=== PATIENT | female | born 1970 | race Hispanic/Latino ===

== ENCOUNTER 2017-11-01 23:24 | Emergency (ER) | payer BC ==
[~2017-11-01] VITALS: Ht 152.4 cm; Wt 63.5 kg
[2017-11-02 00:37] LABS: BASOPHILS # (AUTO) 0.1 (0.0-0.1); BASOPHILS % 0.7 % (0.0-1.0); EOSINOPHILS # (AUTO) 0.3 (0.0-0.4); EOSINOPHILS % 3.5 % (0.0-6.0); HEMATOCRIT 39.4 % (34.2-44.1); HEMOGLOBIN 13.2 g/dL (12.0-16.0); LYMPHOCYTES # (AUTO) 2.3 (1.0-3.2); LYMPHOCYTES % 30.9 % (18.0-39.1); MEAN CORPUSCULAR HEMOGLOBIN 29.7 pg (28-32); MEAN CORPUSCULAR HGB CONC 33.5 g/dL (31-35); MEAN CORPUSCULAR VOLUME 88.7 fL (81-99); MONOCYTES # (AUTO) 0.4 (0.2-0.8); MONOCYTES % 5.5 % (4.4-11.3); NEUTROPHILS # (AUTO) 4.4 (2.1-6.9); NEUTROPHILS % 59.1 % (38.7-80.0); PLATELET COUNT 248 x10e3/uL (140-360); RED BLOOD COUNT 4.44 x10e6/uL (3.6-5.1); RED CELL DISTRIBUTION WIDTH 12.3 % (11.7-14.4)
[2017-11-02 00:50] LABS: INR 1.04; PROTHROMBIN TIME 12.8 seconds (11.9-14.5)
[2017-11-02 00:51] LABS: PARTIAL THROMBOPLASTIN TIME 25.9 seconds (23.8-35.5)
[2017-11-02 00:58] LABS: ALANINE AMINOTRANSFERASE 12 IU/L (0-55); ALBUMIN 3.7 g/dL (3.5-5.0); ALKALINE PHOSPHATASE 76 IU/L (40-150); ANION GAP 11.9 mmol/L (8-16); BLOOD UREA NITROGEN 13 mg/dL (7-26); BUN/CREATININE RATIO 19 (6-25); CALCIUM 8.7 mg/dL (8.4-10.2); CARBON DIOXIDE 25 mmol/L (22-29); CHLORIDE 105 mmol/L (98-107); CREATININE, SERUM 0.68 mg/dL (0.57-1.11); EST GLOMERULAR FILTRATION RATE > 60 ML/MIN (60-); GLUCOSE 100 mg/dL (74-118); POTASSIUM 3.9 mmol/L (3.5-5.1); SODIUM 138 mmol/L (136-145)
[2017-11-02 03:26] VITALS: BP 123/77
== END 2017-11-02 03:39 | disposition home or self-care (01) ==
LOC: ER 23:24
DX: K62.5 Hemorrhage of anus and rectum (principal)
CPT/HCPCS: 36415; 80053; 83735; 85025; 85610; 85730; 86850; 86900; 99283

== ENCOUNTER → 2017-11-09 | Day surgery (SDC) | payer BC ==
[~2017-11-09] MED LIST: FENTANYL CITRATE/PF 100MCG/2 ML INJ ONE; LIDOCAINE HCL 2% LOCAL INJ 5 ML SDV VIAL INJ ONE; MIDAZOLAM HCL 2 MG/2 ML VIAL ONE; PROPOFOL IV EMULSION 10 MG/ML 50 ML VIAL ONE; SLEEP AID25 M1 PO
--- OUTSIDE RECORDS SUMMARY | 2017-11-09 12:26 | XMS REPORT | Continuity of Care Document ---
Author Author [facility] Organization [facility] Address [address] [place] [address] Phone Unavailable Care Team Providers Care Ship Unloader Name Role Phone JUSTIN OLIVEIRA MD PCP Advance Directives No advance directive information available. Problems No problem information available. Medications No medication information available. Social History Smoking Status Start Date Stop Date Never Smoker Hospital Discharge Instructions No hospital discharge instruction information available. Plan of Care Discharge Date 11/02/17 3:39am Disposition HOME, SELF-CARE Condition at Discharge Stable Instructions/Education Provided GI Bleeding Forms Provided Work/School Excuse Prescriptions See Medication Section Referrals JUSTIN OLIVEIRA MD Order Date: In AM [facility]: [address] [facility] [address] [place], [place] [id number] Additional Instructions/Education FOLLOW-UP WITH YOUR [employer] MAINTENANCE TECHNICIAN IN THE MORNING FOR COLONOSCOPY Functional Status No functional status information available. Allergies, Adverse Reactions, Alerts No known allergies. Immunizations No immunization information available. Vital Signs Acute Vital Signs Vital Response Date/Time Blood Pressure 123/77 mm Hg 11/02/2017 3:26am Height 5 ft 0 in 11/02/2017 12:09am Weight 140 lb 11/02/2017 12:09am Body Mass Index 27.3 kg/m^2 11/02/2017 12:09am Results Laboratory Results Test Name Result Units Flags Reference Collection Date/Time Result Date/ Time Comments White Blood Count 7.50 x10e3/uL 4.8-10.8 11/02/2017 12:11/02/2017 12:41am Red Blood Count 4.44 x10e6/uL 3.6-5.1 11/02/2017 12:11/02/2017 12: 41am Hemoglobin 13.2 g/dL 12.0-16.0 11/02/2017 12:11/02/2017 12:41am Hematocrit 39.4 % 34.2-44.1 11/02/2017 12:11/02/2017 12:41am Mean Corpuscular Volume 88.7 fL 81-99 11/02/2017 12:11/02/2017 12: 41am Mean Corpuscular Hemoglobin 29.7 pg 28-32 11/02/2017 12:2017 12:41am Mean Corpuscular Hemoglobin Concent 33.5 g/dL 31-35 11/02/2017 12:11/02/2017 12:41am Red Cell Distribution Width 12.3 % 11.7-14.4 11/02/2017 12:2017 12:41am Platelet Count 248 x10e3/uL 140-360 11/02/2017 12:11/02/2017 12: 41am Neutrophils (%) (Auto) 59.1 % 38.7-80.0 11/02/2017 12:11/02/2017 12:41am Lymphocytes (%) (Auto) 30.9 % 18.0-39.1 11/02/2017 12:11/02/2017 12:41am Monocytes (%) (Auto) 5.5 % 4.4-11.3 11/02/2017 12:11/02/2017 12: 41am Eosinophils (%) (Auto) 3.5 % 0.0-6.0 11/02/2017 12:11/02/2017 12: 41am Basophils (%) (Auto) 0.7 % 0.0-1.0 11/02/2017 12:11/02/2017 12: 41am IM GRANULOCYTES % 0.3 % 0.0-1.0 11/02/2017 12:11/02/2017 12:41am Neutrophils # (Auto) 4.4 2.1-6.9 11/02/2017 12:11/02/2017 12: 41am Lymphocytes # (Auto) 2.3 1.0-3.2 11/02/2017 12:11/02/2017 12: 41am Monocytes # (Auto) 0.4 0.2-0.8 11/02/2017 12:11/02/2017 12:41am Eosinophils # (Auto) 0.3 0.0-0.4 11/02/2017 12:11/02/2017 12: 41am Basophils # (Auto) 0.1 0.0-0.1 11/02/2017 12:11/02/2017 12:41am Absolute Immature Granulocyte (auto 0.02 x10e3/uL 0-0.1 11/02/2017 12: 11/02/2017 12:41am Prothrombin Time 12.8 seconds 11.9-14.5 11/02/2017 12:11/02/2017 12:52am Prothromb Time International Ratio 1.04 11/02/2017 12:2017 12:52am Oral Anticoagulant Therapy INR Values: 1. Low Intensity Therapy 1.5 - 2.0 2. Moderate Intensity Therapy 2.0 - 3.0 3. High Intensity Therapy(1) 2.5 - 3.5 4. High Intensity Therapy(2) 3.0 - 4.0 5. Panic Value INR > 5.0 Activated Partial Thromboplast Time 25.9 seconds 23.8-35.5 11/02/2017 12 :11/02/2017 12:52am Sodium Level 138 mmol/L 136-145 11/02/2017 12:11/02/2017 12:59am Potassium Level 3.9 mmol/L 3.5-5.1 11/02/2017 12:11/02/2017 12: 59am Chloride Level 105 mmol/L 98-107 11/02/2017 12:11/02/2017 12:59am Carbon Dioxide Level 25 mmol/L 11/02/2017 12:11/02/2017 12: 59am Anion Gap 11.9 mmol/L 8-11/02/2017 12:11/02/2017 12:59am Blood Urea Nitrogen 13 mg/dL 01-0411/02/2017 12:11/02/2017 12: 59am Creatinine 0.68 mg/dL 0.57-1.11 11/02/2017 12:11/02/2017 12:59am BUN/Creatinine Ratio 19 6-25 11/02/2017 12:11/02/2017 12:59am Estimat Glomerular Filtration Rate > 60 ML/MIN 60- 11/02/2017 12:11/02/2017 12:59am Ranges were taken from the National Kidney Disease Education Program and the National Kid[employer] literature. Reference ranges: 60 or greater: Normal 16-59 (for 3 consecutive months): Chronic kidney disease 15 or less: Kidney failure Glucose Level 100 mg/dL 74-118 11/02/2017 12:11/02/2017 12:59am Calcium Level 8.7 mg/dL 8.4-10.2 11/02/2017 12:11/02/2017 12:59am Magnesium Level 2.0 MG/DL 1.3-2.1 11/02/2017 12:11/02/2017 12: 59am Total Bilirubin 0.2 mg/dL 0.2-1.2 11/02/2017 12:11/02/2017 12: 59am Aspartate Amino Transf (AST/SGOT) 15 IU/L 5-34 11/02/2017 12:11/02 12:59am Alanine Aminotransferase (ALT/SGPT) 12 IU/L 0-55 11/02/2017 12: 12:59am Total Protein 7.3 g/dL 6.5-8.1 11/02/2017 12:11/02/2017 12:59am Albumin 3.7 g/dL 3.5-5.0 11/02/2017 12:11/02/2017 12:59am Globulin 3.6 g/dL H 2.3-3.5 11/02/2017 12:11/02/2017 12:59am Albumin/Globulin Ratio 1.0 0.8-2.0 11/02/2017 12:11/02/2017 12: 59am Alkaline Phosphatase 76 IU/L 40-150 11/02/2017 12:11/02/2017 12: 59am Procedures No procedure information available. Encounters Encounter Location Arrival/Admit Date Discharge/Depart Date Attending Provider Departed Emergency Room [facility] 11/01/17 11:24pm 11/02 3:39am NICK MEDELLIN MD
--- NOTE | 2017-11-09 16:04 | Operative Report ---
DATE OF PROCEDURE: November 09, 2017 PROCEDURES PERFORMED 1. Esophagogastroduodenoscopy with biopsies. 2. Colonoscopy with polypectomy. INDICATIONS FOR EGD: Upper abdominal pain. INDICATIONS FOR COLONOSCOPY: Chronic diarrhea. MEDICATION: Patient was done under MAC. Please see anesthesiologist's note. PROCEDURE: With the patient in the left lateral decubitus position, the flexible fiberoptic Olympus gastroscope was introduced into the esophagus under direct visualization without any difficulty. There was some patchy erythema noted in the distal esophagus. The scope was then advanced with ease into the stomach. Mucosa overlying the antrum and the body revealed some patchy erythema and mild to moderate edema, and biopsies were obtained and sent to stain for H. pylori. Pylorus appeared to be of normal contour and shape. It was intubated with ease. The scope was advanced all the way to the 2nd portion of the duodenum. The scope was then withdrawn slowly. Mucosa overlying the proximal 2nd portion appeared to be within normal limits. A large friable fold was noted in the duodenal bulb, which was somewhat nodular and biopsies were obtained. The scope was then withdrawn back into the stomach and retroflexed. The mucosa overlying the fundus and the cardia appeared to be within normal limits. The scope was then straightened out. The stomach was decompressed. The scope was subsequently withdrawn. Patient tolerated the procedure well. IMPRESSION 1. Distal esophagitis, mild. 2. Gastritis, biopsied. Biopsies sent to stain for Helicobacter pylori. 3. Friable fold, duodenal bulb, biopsies obtained. 4. Rule out sprue. PLAN: Follow up histology. Initiate Protonix 40 mg 1 p.o. q.a.m. a.c. Patient was then turned around. After adequate lubrication of the anal canal, a flexible fiberoptic Olympus colonoscope was inserted into the rectum with ease and advanced all the way to the cecum. The scope was then withdrawn slowly. Mucosa overlying the cecum appeared to be within normal limits. The ileocecal valve was intubated, and the scope was advanced into the terminal ileum. Biopsies were obtained. The scope was then withdrawn back into the colon. It was then withdrawn slowly. Mucosa overlying the ascending colon, transverse colon, descending, and sigmoid colon were grossly unremarkable. A large semi-circumferential mass was noted in the proximal rectum approximately 9 cm from the anal verge. Wedge biopsies were obtained per snare electrocautery. The scope was then retroflexed into the distal rectum and small internal hemorrhoids were noted, none of which was actively bleeding. The scope was then straightened out. It was subsequently withdrawn. Patient tolerated the procedure well. IMPRESSION 1. Rectal mass, semi-circumferential, wedge biopsied per snare electrocautery. 2. Internal hemorrhoids, none actively bleeding. PLAN: Follow up histology. Patient will need a CT scan of the abdomen and pelvis. Also, a general surgical consult is in order. Job#: [id number] RI cc:ADRIANA ACUNA MD
[2017-11-09 16:17] LABS: WBC,FECAL (FECAL LACTOFERRIN) POSITIVE (NEGATIVE)
[2017-11-10 14:49] LABS: C DIFFICILE TOXIN A&B AMP PROB NEGATIVE (NEGATIVE)
== END | disposition home or self-care (01) ==
LOC: OR 12:24
PROVIDERS: ATTEND Internal Medicine Gastroenterology
DX: K29.70 Gastritis, unspecified, without bleeding (principal); D12.8 Benign neoplasm of rectum; Q43.8 Other specified congenital malformations of intestine; K20.9 Esophagitis, unspecified; K31.89 Other diseases of stomach and duodenum; K64.8 Other hemorrhoids; R06.83 Snoring; Z01.812 Encounter for preprocedural laboratory examination
CPT/HCPCS: 43239; 45385; 81025; 83630; 83993; 87045; 87177; 87328; 87493; J2001; J2250; 45380

== ENCOUNTER → 2017-11-13 | Outpatient (CLI) | payer BC ==
[~2017-11-13] MED LIST changes: +DIATRIZOATE MEGL/DIATRIZOA SOD 30 ML BTL PO ONE; -FENTANYL CITRATE/PF 100MCG/2 ML INJ ONE; +IOPAMIDOL 370 MG/ML 200 ML INFUS..BTL INJ ONE; -LIDOCAINE HCL 2% LOCAL INJ 5 ML SDV VIAL INJ ONE; -MIDAZOLAM HCL 2 MG/2 ML VIAL ONE; -PROPOFOL IV EMULSION 10 MG/ML 50 ML VIAL ONE; +SODIUM CHLORIDE 0.9% 50ML 50 ML ONE
--- NOTE | 2017-11-13 16:45 | Diagnostic Imaging Report ---
PROCEDURE: CT ABDOMEN AND PELVIS WITH CONTRAST TECHNIQUE: The abdomen and pelvis were scanned utilizing a multidetector helical scanner from the diaphragm to the lesser trochanter after the IV administration of 100 cc of Isovue 370 and the oral administration of Gastrografin. Coronal and sagittal multiplanar reformations were obtained. COMPARISON: None. INDICATIONS: RECTAL MASS FOUND ON COLONOSCOPY FINDINGS: LOWER THORAX: Normal. HEPATOBILIARY: Diffuse hepatic steatosis. No focal hepatic lesions. No biliary ductal dilatation. SPLEEN: No splenomegaly. PANCREAS: No focal masses or ductal dilatation. ADRENALS: No adrenal nodules. KIDNEYS/URETERS: No hydronephrosis, stones, or solid mass lesions. PELVIC ORGANS/BLADDER: Unremarkable. PERITONEUM / RETROPERITONEUM: No free air or fluid. LYMPH NODES: No lymphadenopathy. VESSELS: Unremarkable. GI TRACT: Rectum: 3.1 cm (transverse) x 3.5 cm (AP ) x 2.7 cm (craniocaudal) predominantly intraluminal mass within the rectum appears to arise from the left side with indistinct margins and a neovascularity along the left aspect (series 2 image 70), with possible extra-serosal extension and adjacent neovascularity. The inferior aspect of the tumor is 3.5 cm from the dentate line. It is indeterminate if the tumor extends more inferiorly. No distention or wall thickening in the stomach or small bowel. BONES AND SOFT TISSUES: Unremarkable. Small fat containing umbilical hernia. IMPRESSION: 1. 3.1 x 3.5 x 2.7 cm predominantly intraluminal low rectal mass which appears to arise from the left aspect with possible extra serosal extension with adjacent neovascularity and mild spiculation. 2. No regional or distal lymph nodes. Dictated by: Parvez Quach M.D. on 11/13/2017 at 16:48 Electronically approved by: Parvez Quach M.D. on 11/13/2017 at 16:48
== END ==
LOC: CT 12:57
PROVIDERS: ATTEND Internal Medicine Gastroenterology
DX: R19.09 Other intra-abdominal and pelvic swelling, mass and lump (principal); K42.9 Umbilical hernia without obstruction or gangrene
CPT/HCPCS: 74177; 81025; Q9967

== ENCOUNTER 2017-12-25 06:59 | Inpatient (IN) | payer BC ==
[2017-12-22 09:32] LABS: BASOPHILS % 0.4 % (0.0-1.0); EOSINOPHILS # (AUTO) 0.2 (0.0-0.4); HEMATOCRIT 40.7 % (34.2-44.1); HEMOGLOBIN 13.4 g/dL (12.0-16.0); LYMPHOCYTES # (AUTO) 1.9 (1.0-3.2); LYMPHOCYTES % 25.6 % (18.0-39.1); MEAN CORPUSCULAR HEMOGLOBIN 29.5 pg (28-32); MEAN CORPUSCULAR HGB CONC 32.9 g/dL (31-35); MEAN CORPUSCULAR VOLUME 89.6 fL (81-99); MONOCYTES # (AUTO) 0.3 (0.2-0.8); MONOCYTES % 4.3 % (4.4-11.3); NEUTROPHILS % 67.4 % (38.7-80.0); PLATELET COUNT 227 x10e3/uL (140-360); RED BLOOD COUNT 4.54 x10e6/uL (3.6-5.1); RED CELL DISTRIBUTION WIDTH 12.8 % (11.7-14.4)
[2017-12-22 09:51] LABS: ANION GAP 11.7 mmol/L (8-16); BLOOD UREA NITROGEN 14 mg/dL (7-26); BUN/CREATININE RATIO 20 (6-25); CALCIUM 9.6 mg/dL (8.4-10.2); CARBON DIOXIDE 28 mmol/L (22-29); CHLORIDE 103 mmol/L (98-107); CREATININE, SERUM 0.71 mg/dL (0.57-1.11); EST GLOMERULAR FILTRATION RATE > 60 ML/MIN (60-); GLUCOSE 102 mg/dL (74-118); POTASSIUM 5.7 mmol/L (3.5-5.1); SODIUM 137 mmol/L (136-145)
[~2017-12-25] VITALS: Ht 152.4 cm; Wt 65.8 kg
[~2017-12-25 06:59] MED LIST changes: -DIATRIZOATE MEGL/DIATRIZOA SOD 30 ML BTL PO ONE; -IOPAMIDOL 370 MG/ML 200 ML INFUS..BTL INJ ONE; -SODIUM CHLORIDE 0.9% 50ML 50 ML ONE
[2017-12-25] MEDS ORDERED: MINERAL OIL STERILE 10ML VIAL ONE (07:58)
[2017-12-25] MEDS ORDERED: HYDROMORPHONE 0.2MG/ML-SOD CHL 30ML PCA SYRINGE IV ONE (13:29)
[2017-12-25] MEDS ORDERED: ONDANSETRON HCL INJ 2 MG/ML VIAL IV PRN (13:30)
[2017-12-25] MEDS ORDERED: HYDROMORPHONE 0.2MG/ML-SOD CHL 30ML PCA SYRINGE IV PRN (13:30)
[2017-12-25] MEDS ORDERED: ACETAMINOPHEN 1000 MG/100 ML IV PRN (13:30)
[2017-12-25] MEDS ORDERED: NALOXONE HCL INJ 0.4 MG/ML AMP IV PRN (13:30)
--- NOTE | 2017-12-25 14:36 | Operative Report ---
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 OPERATION PERFORMED: Exploratory laparotomy, low anterior resection with transanal stapled anastomosis. ASSISTANTS: Dr. Marcos Perez and MABEL Milian. ANESTHESIA: General. COMPLICATIONS: None. ESTIMATED BLOOD LOSS: 100 mL. DESCRIPTION OF PROCEDURE: With the patient lying in bed in the supine position, under good general anesthesia, the abdomen and perineum were prepped with Betadine solution and draped in the usual manner. A lower midline incision was made. It was carried down through the subcutaneous tissue and through the midline fascia. The peritoneum was opened, and the abdomen was entered. Upon entering the abdominal cavity, exploration revealed there was a palpable mass in the rectum that could be felt through the colon. This was certainly extraperitoneal in the rectum. The rest of the abdominal exploration was otherwise within normal limits. Other than the pelvic organs where there was a multiparous uterus, there were some adhesions in the pelvis from the patient's previous sections. The colon was then mobilized off of the lateral gutter without any difficulty. Left and right ureters were identified without any problems. The colon was then divided at the junction of the sigmoid and descending colon with an application of BENI 75 stapler. The mesentery of the colon was then slowly and carefully taken down all the way down to the entrance of the pelvis. The retrorectal space was then entered without any difficulty. The lateral stalks were taken down using the Enseal device. Anteriorly, because of the patient's previous surgeries, the cervix and vagina were rather stuck to the colon. Nonetheless, the colon was from this, and we were able to pull it up and get a margin of at least 3 cm below the palpable lesion. At this point, after the colon and rectum had been cleared off circumferentially, the rectum was divided with an application of the contour stapler, and the specimen was sent for pathological examination. Hemostasis was ascertained. The proximal colon was then prepared for the anastomosis. A 29 anvil was placed into the proximal colon and sutured in place with a pursestring suture of 2-0 Prolene. We then went from below. After the anus was dilated, the stapler was introduced into the rectum and brought out through just below the staple line from the contour stapler. The stapler and anvil were then joined and slowly closed, and the stapler was then fired. Two perfect doughnuts were obtained proximally and distally. The anastomosis was really very low and was easily palpable through rectal examination. Gloves, instruments and gowns were changed, and the abdomen was then copiously irrigated with saline solution. All of the excess fluid was aspirated, and the hemostasis was ascertained. A #10 flat [place] was then placed in the retrorectal space and brought out through a separate stab wound incision in the left lower abdomen. The abdomen was then closed in layers. The peritoneum was then closed with a running suture of #1 Vicryl. Midline fascia was closed with a running suture of #1 Vicryl. Subcutaneous tissue was approximated with 2-0 chromic, and the skin was closed with clips. A dressing was applied. The sponge, lap and needle count was correct. The patient tolerated the procedure well and returned to the recovery room in stable condition. Job#: [id number]
[2017-12-25] MEDS: SODIUM CHLORIDE 0.9% 250ML IRRIG IR SCH ×3 (15:18→21:34)
[2017-12-25] MEDS: DEXTROSE 5%/LACTATED RINGERS 1,000 ML IV SCH ×2 (15:30→21:34)
[2017-12-25] MEDS: CEFOXITIN SOD 1 GM VIAL IV SCH ×2 (17:06→23:24)
[2017-12-25] MEDS: PANTOPRAZOLE 40 MG 10ML VIAL IV SCH (17:06)
[2017-12-25 17:09] VITALS: BP 114/54
[2017-12-25] MEDS ORDERED: SEVOFLURANE INHAL SOLN 250 ML PEN BTL ONE (17:38)
[2017-12-25] MEDS ORDERED: GLYCOPYRROLATE INJ 1MG/ 5 ML SYR ONE (17:38)
[2017-12-25] MEDS ORDERED: ONDANSETRON HCL INJ 2 MG/ML VIAL ONE (17:38)
[2017-12-25] MEDS ORDERED: LIDOCAINE HCL 2% LOCAL INJ 5 ML SDV VIAL INJ ONE (17:38)
[2017-12-25] MEDS ORDERED: NEOSTIGMINE 5 MG/5ML SYR ONE (17:38)
[2017-12-25] MEDS ORDERED: PROPOFOL IV EMULSION 10 MG/ML 20 ML VIAL ONE (17:38)
[2017-12-25] MEDS ORDERED: CEFOXITIN SOD 1 GM VIAL ONE (17:38)
[2017-12-25] MEDS ORDERED: DEXAMETHASONE SOD PHOS INJ 4 MG/ML VIAL ONE (17:38)
[2017-12-25] MEDS ORDERED: ROCURONIUM BROMIDE 10 MG/ML 5ML VIAL ONE (17:38)
[2017-12-25] MEDS ORDERED: MIDAZOLAM HCL 2 MG/2 ML VIAL ONE (17:40)
[2017-12-25] MEDS ORDERED: FENTANYL CITRATE/PF 100MCG/2 ML INJ ONE (17:40)
[2017-12-25] MEDS ORDERED: CEFOXITIN 1GM/ DEXTROSE 50ML 50 ML IV SCH (18:00)
[2017-12-25 20:00] VITALS: BP 123/63
[2017-12-25] MEDS: DIPHENHYDRAMINE HCL INJ 50 MG/ML VIAL IV PRN (20:40)
[2017-12-25 22:00] VITALS: BP 123/63
[2017-12-26] VITALS (8 sets, daily range): BP systolic 111–119; BP diastolic 54–72
[2017-12-26] MEDS: SODIUM CHLORIDE 0.9% 250ML IRRIG IR SCH ×6 (00:15→20:38)
[2017-12-26] MEDS: DIPHENHYDRAMINE HCL INJ 50 MG/ML VIAL IV PRN ×3 (02:50→16:53)
[2017-12-26 04:52] LABS: BASOPHILS % 0.1 % (0.0-1.0); HEMATOCRIT 31.5 % (34.2-44.1); HEMOGLOBIN 10.3 g/dL (12.0-16.0); LYMPHOCYTES # (AUTO) 0.8 (1.0-3.2); LYMPHOCYTES % 4.5 % (18.0-39.1); MEAN CORPUSCULAR HGB CONC 32.7 g/dL (31-35); MEAN CORPUSCULAR VOLUME 91.8 fL (81-99); MONOCYTES # (AUTO) 0.7 (0.2-0.8); MONOCYTES % 4.3 % (4.4-11.3); NEUTROPHILS # (AUTO) 15.6 (2.1-6.9); NEUTROPHILS % 90.7 % (38.7-80.0); PLATELET COUNT 221 x10e3/uL (140-360); RED BLOOD COUNT 3.43 x10e6/uL (3.6-5.1); RED CELL DISTRIBUTION WIDTH 12.6 % (11.7-14.4)
[2017-12-26 06:35] LABS: ANION GAP 10.4 mmol/L (8-16); BLOOD UREA NITROGEN 8 mg/dL (7-26); BUN/CREATININE RATIO 11 (6-25); CARBON DIOXIDE 27 mmol/L (22-29); CHLORIDE 103 mmol/L (98-107); EST GLOMERULAR FILTRATION RATE > 60 ML/MIN (60-); GLUCOSE 162 mg/dL (74-118); POTASSIUM 4.4 mmol/L (3.5-5.1); SODIUM 136 mmol/L (136-145)
[2017-12-26] MEDS: DEXTROSE 5%/LACTATED RINGERS 1,000 ML IV SCH ×2 (11:10→20:38)
[2017-12-26] MEDS: PANTOPRAZOLE 40 MG 10ML VIAL IV SCH (16:09)
[2017-12-27] VITALS (9 sets, daily range): BP systolic 111–136; BP diastolic 54–65
[2017-12-27] MEDS: DIPHENHYDRAMINE HCL INJ 50 MG/ML VIAL IV PRN ×2 (00:10→10:36)
[2017-12-27] MEDS: SODIUM CHLORIDE 0.9% 250ML IRRIG IR SCH ×4 (02:30→13:30)
[2017-12-27 05:19] LABS: BASOPHILS % 0.2 % (0.0-1.0); EOSINOPHILS # (AUTO) 0.1 (0.0-0.4); EOSINOPHILS % 0.7 % (0.0-6.0); HEMATOCRIT 28.8 % (34.2-44.1); HEMOGLOBIN 9.4 g/dL (12.0-16.0); LYMPHOCYTES # (AUTO) 1.6 (1.0-3.2); LYMPHOCYTES % 10.8 % (18.0-39.1); MEAN CORPUSCULAR HEMOGLOBIN 29.9 pg (28-32); MEAN CORPUSCULAR HGB CONC 32.6 g/dL (31-35); MEAN CORPUSCULAR VOLUME 91.7 fL (81-99); MONOCYTES # (AUTO) 0.7 (0.2-0.8); MONOCYTES % 4.5 % (4.4-11.3); NEUTROPHILS # (AUTO) 12.4 (2.1-6.9); NEUTROPHILS % 83.4 % (38.7-80.0); PLATELET COUNT 196 x10e3/uL (140-360); RED BLOOD COUNT 3.14 x10e6/uL (3.6-5.1); RED CELL DISTRIBUTION WIDTH 12.8 % (11.7-14.4)
[2017-12-27] MEDS: DEXTROSE 5%/LACTATED RINGERS 1,000 ML IV SCH ×3 (05:28→16:38)
[2017-12-27 05:46] LABS: ANION GAP 9.3 mmol/L (8-16); BLOOD UREA NITROGEN 7 mg/dL (7-26); BUN/CREATININE RATIO 10 (6-25); CALCIUM 8.4 mg/dL (8.4-10.2); CARBON DIOXIDE 32 mmol/L (22-29); CHLORIDE 105 mmol/L (98-107); CREATININE, SERUM 0.68 mg/dL (0.57-1.11); EST GLOMERULAR FILTRATION RATE > 60 ML/MIN (60-); GLUCOSE 129 mg/dL (74-118); POTASSIUM 4.3 mmol/L (3.5-5.1); SODIUM 142 mmol/L (136-145)
[2017-12-27] MEDS ORDERED: HYDROMORPHONE 0.2MG/ML-SOD CHL 30ML PCA SYRINGE IV PRN (10:15)
[2017-12-27] MEDS: PANTOPRAZOLE 40 MG 10ML VIAL IV SCH (16:38)
[2017-12-28] VITALS (7 sets, daily range): BP systolic 119–133; BP diastolic 56–62
[2017-12-28] MEDS: DEXTROSE 5%/LACTATED RINGERS 1,000 ML IV SCH ×3 (03:11→23:42)
[2017-12-28 05:25] LABS: BASOPHILS % 0.3 % (0.0-1.0); EOSINOPHILS # (AUTO) 0.2 (0.0-0.4); EOSINOPHILS % 2.4 % (0.0-6.0); HEMATOCRIT 26.3 % (34.2-44.1); HEMOGLOBIN 8.6 g/dL (12.0-16.0); LYMPHOCYTES # (AUTO) 1.9 (1.0-3.2); LYMPHOCYTES % 20.4 % (18.0-39.1); MEAN CORPUSCULAR HEMOGLOBIN 29.6 pg (28-32); MEAN CORPUSCULAR HGB CONC 32.7 g/dL (31-35); MEAN CORPUSCULAR VOLUME 90.4 fL (81-99); MONOCYTES # (AUTO) 0.5 (0.2-0.8); MONOCYTES % 5.4 % (4.4-11.3); NEUTROPHILS # (AUTO) 6.7 (2.1-6.9); NEUTROPHILS % 71.1 % (38.7-80.0); PLATELET COUNT 204 x10e3/uL (140-360); RED BLOOD COUNT 2.91 x10e6/uL (3.6-5.1); RED CELL DISTRIBUTION WIDTH 12.7 % (11.7-14.4)
[2017-12-28 06:10] LABS: ANION GAP 8.4 mmol/L (8-16); BLOOD UREA NITROGEN < 5 mg/dL (7-26); CALCIUM 8.4 mg/dL (8.4-10.2); CARBON DIOXIDE 29 mmol/L (22-29); CHLORIDE 105 mmol/L (98-107); EST GLOMERULAR FILTRATION RATE > 60 ML/MIN (60-); GLUCOSE 109 mg/dL (74-118); POTASSIUM 3.4 mmol/L (3.5-5.1); SODIUM 139 mmol/L (136-145)
[2017-12-28 06:13] LABS: BUN/CREATININE RATIO 8 (6-25)
[2017-12-28] MEDS ORDERED: HYDROMORPHONE 1MG/1ML INJ IV PRN (14:15)
[2017-12-28] MEDS ORDERED: ZOLPIDEM TARTRATE 10 MG TAB PO PRN (14:15)
[2017-12-28] MEDS: PANTOPRAZOLE 40 MG 10ML VIAL IV SCH (17:00)
[2017-12-28] MEDS: HYDROCODONE/APAP 7.5MG-325MG 1 EA TAB PO PRN (21:00)
[2017-12-29] VITALS (7 sets, daily range): BP systolic 115–139; BP diastolic 58–72
[2017-12-29] MEDS: DEXTROSE 5%/LACTATED RINGERS 1,000 ML IV SCH ×2 (07:28→17:24)
[2017-12-29] MEDS: HYDROCODONE/APAP 7.5MG-325MG 1 EA TAB PO PRN ×2 (12:53→19:30)
[2017-12-29] MEDS: PANTOPRAZOLE 40 MG 10ML VIAL IV SCH (15:28)
[2017-12-30] VITALS (7 sets, daily range): BP systolic 111–141; BP diastolic 57–76
[2017-12-30] MEDS: HYDROCODONE/APAP 7.5MG-325MG 1 EA TAB PO PRN (04:11)
[2017-12-30] MEDS: DEXTROSE 5%/LACTATED RINGERS 1,000 ML IV SCH (12:05)
[2017-12-30] MEDS: PANTOPRAZOLE 40 MG 10ML VIAL IV SCH (16:31)
[2017-12-31] VITALS: BP 133/63
[2017-12-31 06:35] VITALS: BP 140/64
[2017-12-31 08:22] VITALS: BP 124/61
[2017-12-31] MEDS: DEXTROSE 5%/LACTATED RINGERS 1,000 ML IV SCH (10:58)
[2017-12-31] MEDS ORDERED: NORCO 7.5-3251 EACH PO (14:33)
[2017-12-31] MEDS ORDERED: LEVAQUIN500 MG PO (14:34)
== END 2017-12-31 14:50 | disposition home or self-care (01) | DRG 331 ==
LOC: OR 06:59 → PACU V 13:54 → MED/SURG 15:03
PROVIDERS: ADMIT Surgery; ATTEND Surgery
PROC: 0DTN0ZZ Resection of Sigmoid Colon, Open Approach (ICD-10-PCS; principal; 2017-12-25 09:00)
PROC: 0DBP0ZZ Excision of Rectum, Open Approach (ICD-10-PCS; 2017-12-25 09:00)
DX: C19 Malignant neoplasm of rectosigmoid junction (principal); Z28.21 Immunization not carried out because of patient refusal
CPT/HCPCS: 36415; 80048; 81025; 84132; 85025; 86850; 86900; 88307; 88309; 88342; 93005; J0694; J1100; J1200; J2001; J2250; J2405; J7120

== ENCOUNTER 2019-08-08 22:28 | Emergency (ER) | payer BC ==
[~2019-08-08] VITALS: Ht 152.4 cm; Wt 65.8 kg
[~2019-08-08 22:28] MED LIST changes: +LEVAQUIN500 MG PO; +NORCO 7.5-3251 EACH PO
[2019-08-09 00:07] LABS: BASOPHILS % 0.2 % (0.0-1.0); EOSINOPHILS % 0.1 % (0.0-6.0); HEMATOCRIT 42.2 % (34.2-44.1); HEMOGLOBIN 14.3 g/dL (12.0-16.0); LYMPHOCYTES # (AUTO) 1.5 (1.0-3.2); LYMPHOCYTES % 10.7 % (18.0-39.1); MEAN CORPUSCULAR HGB CONC 33.9 g/dL (31-35); MEAN CORPUSCULAR VOLUME 88.5 fL (81-99); MONOCYTES # (AUTO) 0.4 (0.2-0.8); MONOCYTES % 2.6 % (4.4-11.3); NEUTROPHILS # (AUTO) 11.7 (2.1-6.9); PLATELET COUNT 264 x10e3/uL (140-360); RED BLOOD COUNT 4.77 x10e6/uL (3.6-5.1); RED CELL DISTRIBUTION WIDTH 12.2 % (11.7-14.4)
[2019-08-09 00:12] LABS: CLARITY,URINE CLOUDY (CLEAR); COLOR,URINE YELLOW (YELLOW)
[2019-08-09 00:13] LABS: BILIRUBIN,URINE 1+ (NEGATIVE); KETONES,URINE 2+ (NEGATIVE); LEUKOCYTE ESTERASE ,URINE NEGATIVE (NEGATIVE); NITRITE,URINE NEGATIVE (NEGATIVE); PROTEIN,URINE DIPSTICK TRACE (NEGATIVE); URINE UROBILINOGEN 1 mg/dL (0.2 - 1)
[2019-08-09 00:14] LABS: PREGNANCY TEST, URINE NEGATIVE (NEGATIVE)
[2019-08-09 00:22] LABS: BACTERIA,URINE MANY /HPF; EPITHELIAL CELLS,URINE FEW /LPF; RBC,URINE 21-50 /HPF (0-5); WBC,URINE (MAN) 21-50 /HPF (0-5)
[2019-08-09 00:25] LABS: ALANINE AMINOTRANSFERASE 13 IU/L (0-55); ALBUMIN 4.2 g/dL (3.5-5.0); ALBUMIN/GLOBULIN RATIO 1.2 (0.8-2.0); ALKALINE PHOSPHATASE 57 IU/L (40-150); ANION GAP 11.8 mmol/L (8-16); BLOOD UREA NITROGEN 9 mg/dL (7-26); BUN/CREATININE RATIO 13 (6-25); CALCIUM 9.3 mg/dL (8.4-10.2); CARBON DIOXIDE 26 mmol/L (22-29); CHLORIDE 101 mmol/L (98-107); CREATININE, SERUM 0.68 mg/dL (0.57-1.11); EST GLOMERULAR FILTRATION RATE > 60 ML/MIN (60-); GLUCOSE 97 mg/dL (74-118); POTASSIUM 3.8 mmol/L (3.5-5.1); SODIUM 135 mmol/L (136-145)
[2019-08-09 00:26] LABS: AMYLASE 70 U/L (25-125); LIPASE 15 U/L (8-78)
[2019-08-09] MEDS ORDERED: IOPAMIDOL 370 MG/ML 200 ML INFUS..BTL INJ ONE (01:52)
[2019-08-09] MEDS ORDERED: SODIUM CHLORIDE 0.9% 50ML 50 ML ONE (01:52)
[2019-08-09] MEDS ORDERED: ONDANSETRON HCL INJ 2MG/ML 2ML 2 MG/ML VIAL IV STA (02:12)
--- NOTE | 2019-08-09 02:38 | Diagnostic Imaging Report ---
EXAMINATION: CT of the abdomen and pelvis with contrast. TECHNIQUE: Spiral CT images of the abdomen and pelvis were performed from the lung bases to the lesser trochanters after the intravenous administration of 100 cc of Isovue 370. Coronal and sagittal reformatted images were obtained. COMPARISON: None. CLINICAL HISTORY:Epigastric pain x 7 h DISCUSSION: ABDOMEN/PELVIS: LOWER THORAX:Lung bases are unremarkable. No pleural effusion. HEPATOBILIARY: No focal hepatic lesions. No intra-or extrahepatic biliary ductal dilation. The gallbladder is unremarkable. SPLEEN: No splenomegaly or focal splenic lesion. PANCREAS: No focal masses or ductal dilatation. ADRENALS: No adrenal nodules. KIDNEYS/URETERS: No hydronephrosis, calculi, or solid or cystic mass lesions. PELVIC ORGANS/BLADDER: Urinary bladder is unremarkable. Intrauterine device is in place. 7.6 cm left ovarian cyst. PERITONEUM/RETROPERITONEUM: Small volume pelvic and splenic ascites. No pneumoperitoneum. LYMPH NODES: No pelvic sidewall, retroperitoneal, or mesenteric lymphadenopathy. VESSELS: Abdominal aorta, major branch vessels, and iliac arterial systems are patent. Portal vein, splenic vein, and central superior mesenteric vein are patent. GI TRACT: Radiopaque suture material along the low rectum. Gas and fecal material are noted throughout the large bowel. Normal appendix. There are multiple mildly dilated loops of small bowel within the left abdomen with mucosal enhancement and intermittent foci of wall thickening/stricture for example on coronal image 38. Maximum caliber of the bowel loops is approximately 2.8 cm. BONES AND SOFT TISSUE: No osseous destructive lesions. Multilevel degenerative disc changes predominantly at L5-S1 with a peripherally calcified posterior disc protrusion. No focal soft tissue abnormalities. IMPRESSION: Multiple borderline dilated loops of small bowel with associated mucosal enhancement and suspected intermittent stricturing is concerning for inflammatory bowel disease. Infectious enteritis is an additional consideration. Reactive small volume ascites without john perforation or drainable fluid collection. Gas and fecal material within the colon argues against high-grade small bowel obstruction. Postsurgical changes of the distal colon. 7 cm left ovarian cyst should be further evaluated by nonemergent pelvic MRI given size. Signed by: Dr. Greg Kerns M.D. on 08/09/2019 2:36 AM
[2019-08-09 02:58] VITALS: BP 138/77
== END 2019-08-09 03:15 | disposition home or self-care (01) ==
LOC: ER 22:28
DX: R10.13 Epigastric pain (principal); K29.00 Acute gastritis without bleeding; K52.29 Other allergic and dietetic gastroenteritis and colitis; N30.91 Cystitis, unspecified with hematuria
CPT/HCPCS: 36415; 74177; 80053; 81001; 81025; 82150; 83690; 85025; 96374; 99284; J2405; Q9967